=== PATIENT | male | born 1950 | race Caucasian/White ===

== ENCOUNTER 2020-10-25 16:52 | Outpatient (REF) | payer OTHER, SELFPAY ==
--- NOTE | ~2020-10-25 | XR_ITS ---
EXAMINATION: XR FOOT, LEFT CLINICAL INFORMATION: Pain in left ankle and joints of left foot. COMPARISON: None TECHNIQUE: AP, lateral, and oblique views of the left foot. FINDINGS: There is minimal osteoarthritis in the interphalangeal joints, characterized by nonuniform joint space narrowing primarily. No significant osteophytes. Midfoot joints appear well preserved. Bone mineralization is normal. No fracture or malalignment. Soft tissues are unremarkable. No soft tissue mineralization. 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 Otherwise, the joints of the foot appear relatively well preserved on these images. No acute osseous findings.
== END 2020-10-25 16:53 | disposition home or self-care (01) ==
LOC: HO.XRAY 16:52
PROVIDERS: Absent Provider Internal Medicine; PCP Internal Medicine; Visit Provider Emergency Medicine
DX: M25.572 Pain in left ankle and joints of left foot (principal)
CPT/HCPCS: 73630

== ENCOUNTER 2020-11-08 16:45 | Outpatient (REF) | payer OTHER, SELFPAY ==
--- NOTE | ~2020-11-08 | XR_ITS ---
EXAMINATION: LEFT FOOT AND ANKLE X-RAY CLINICAL INFORMATION: Pain COMPARISON: Previous left foot x-ray October 2020 TECHNIQUE: 3 views of the left foot and 3 views of the left ankle FINDINGS: Left foot: Bone alignment is normal. No fracture or dislocation is seen. There is periarticular osteopenia. There is mild joint space narrowing at the IP joints. There is question of an erosion of the anterior talus seen on the lateral view and near the medial talar navicular joint. Soft tissues are normal. Left ankle: Bone alignment is normal. No fracture or dislocation is seen. Ankle mortise is normal. Question anterior talar cystic change or erosion as above. Soft tissues are normal. XR/XR ankle LT min 3V IMPRESSION: Periarticular osteopenia the foot. Question cystic or erosive change of the anterior talus. Mild joint space narrowing at the IP joints.
--- NOTE | ~2020-11-08 | XR_ITS ---
EXAMINATION: LEFT FOOT AND ANKLE X-RAY CLINICAL INFORMATION: Pain COMPARISON: Previous left foot x-ray October 2020 TECHNIQUE: 3 views of the left foot and 3 views of the left ankle FINDINGS: Left foot: Bone alignment is normal. No fracture or dislocation is seen. There is periarticular osteopenia. There is mild joint space narrowing at the IP joints. There is question of an erosion of the anterior talus seen on the lateral view and near the medial talar navicular joint. Soft tissues are normal. Left ankle: Bone alignment is normal. No fracture or dislocation is seen. Ankle mortise is normal. Question anterior talar cystic change or erosion as above. Soft tissues are normal. XR/XR foot LT min 3V IMPRESSION: Periarticular osteopenia the foot. Question cystic or erosive change of the anterior talus. Mild joint space narrowing at the IP joints.
== END 2020-11-08 16:46 | disposition home or self-care (01) ==
LOC: HO.XRAY 16:45
PROVIDERS: PCP Internal Medicine; Visit Provider Emergency Medicine
DX: M25.572 Pain in left ankle and joints of left foot (principal)
CPT/HCPCS: 73610; 73630